=== PATIENT | female | born 1965 | race Caucasian/White ===

== ENCOUNTER 2016-06-24 10:42 | Emergency (ER) | payer MEDICAID | END 2016-06-24 13:40 | disposition home or self-care (01) | DX: S82.831A Other fracture of upper and lower end of right fibula, initial encounter for closed fracture (principal); S93.491A Sprain of other ligament of right ankle, initial encounter; X50.1XXA Overexertion from prolonged static or awkward postures, initial encounter; I10 Essential (primary) hypertension ==

== ENCOUNTER 2016-10-20 19:28 | Outpatient (CLI) | payer MEDICAID | END 2016-10-20 19:29 | disposition critical access hospital (66) | LOC: EMS 19:28 | PROVIDERS: ATTEND Surgery | DX: R10.9 Unspecified abdominal pain (principal) | CPT/HCPCS: A0425; A0429 ==

== ENCOUNTER 2016-10-20 19:42 | Observation (INO) | payer MEDICAID ==
[2016-10-20 20:23] LABS: BASOPHILS # (AUTO) 0.1 10^3/uL (0.0-0.1); BASOPHILS % (AUTO) 0.8 %; EOSINOPHILS # (AUTO) 0.1 10^3/uL (0.0-0.7); EOSINOPHILS % (AUTO) 1.4 %; HCT - HEMATOCRIT 41.3 % (37.0-47.0); HGB - HEMOGLOBIN 14.2 g/dL (12.0-16.0); LYMPHOCYTES # (AUTO) 1.6 10^3/uL (1.5-3.5); LYMPHOCYTES % (AUTO) 16.9 %; MEAN CORPUSCULAR HGB CONC 34.5 g/dL (32.0-36.0); MEAN CORPUSCULAR VOLUME 84.3 fL (81.0-99.0); MEAN PLATELET VOLUME 8.8 fL (7.9-10.8); MONOCYTES # (AUTO) 0.6 10^3/uL (0.0-1.0); MONOCYTES % (AUTO) 6.4 %; NEUTROPHILS # (AUTO) 7.2 10^3/uL (1.5-6.6); NEUTROPHILS % (AUTO) 74.5 %; UNCORRECTED WHITE BLOOD COUNT 9.7 x10^3/uL; WHITE BLOOD COUNT 9.7 x10^3/uL (4.8-10.8)
[2016-10-20 20:42] LABS: ALBUMIN/GLOBULIN RATIO 1.1 (1.0-2.2); BILIRUBIN,TOTAL 0.7 mg/dL (0.2-1.0); BUN - BLOOD UREA NITROGEN 16 mg/dL (6-20); CALCIUM 9.3 mg/dL (8.5-10.3); CARBON DIOXIDE - CO2 33 mmol/L (21-32); CHLORIDE 100 mmol/L (101-111); CREATININE 0.7 mg/dL (0.4-1.0); GFR - MDRD 88 (>89); GLUCOSE 73 mg/dL (70-100); LIPASE 37 U/L (22-51); MAGNESIUM 1.9 mg/dL (1.7-2.8); SODIUM 141 mmol/L (135-145); TOTAL PROTEIN 8.1 g/dL (6.7-8.2)
[2016-10-20] MEDS ORDERED: HYDROmorphone 1 MG/ML SYRINGE IVP STA (20:42)
[2016-10-20] MEDS ORDERED: POTASSIUM CHLOR 10 MEQ/100 ML 100 ML IV ONE ×2 (20:42→20:55)
[2016-10-20] MEDS ORDERED: SODIUM CHLORIDE 0.9% 1,000 ML IV ONE (20:42)
--- NOTE | 2016-10-20 20:44 | ED Physician Documentation ---
PD HPI ABD PAIN - Stated complaint Stated Complaint: ABD PAIN - Chief complaint Chief Complaint: Abd Pain - History obtained from History obtained from: Patient - History of Present Illness Timing - onset: Other (51-year-old woman with chronic hypokalemia, hepatitis C, and methamphetamine abuse presents with sudden onset periumbilical pain that started a few hours ago. She had methamphetamines this morning. Her only abdominal surgery is tubal ligation. She denies any nausea or vomiting with this. She had a small hard bowel movement shortly before the pain began.) Review of Systems Ten Systems: 10 systems reviewed and negative Constitutional: denies: Fever, Chills Cardiac: reports: Reviewed and negative Respiratory: reports: Reviewed and negative GI: reports: Abdominal Pain, Constipation. 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 - Present Medications Home Medications: Ambulatory Orders Medication Instructions Recorded Confirmed Buspirone HCl 10 mg PO DAILY 08/13/12 06/24/16 FLUoxetine [PROzac] 60 mg PO DAILY 08/13/12 06/24/16 buPROPion [Wellbutrin Xl] 150 mg PO DAILY 10/30/13 06/24/16 Spironolactone 25 mg PO DAILY 06/08/15 06/24/16 amLODIPine [Norvasc] 1 tab PO DAILY 06/08/15 06/24/16 - Allergies Allergies/Adverse Reactions: Allergies Allergy/AdvReac Type Severity Reaction Status Date / Time acetaminophen [From Tylenol] AdvReac Severe HEP C Verified 10/20/16 19:48 STATUS/UNABLE TO PROCESS TYLENOL - Social History Does the pt smoke?: No Smoking Status: Never smoker Does the pt drink ETOH?: No Does the pt have substance abuse?: Yes Substance Use and Type: Meth - Family History Family history: reports: Non contributory - Immunizations Immunizations are current?: Yes Immunizations: TDAP >10years/unknown - POLST Patient has POLST: No PD ED PE NORMAL - Vitals Vital signs reviewed: Yes - General General: Alert and oriented X 3, No acute distress - HEENT HEENT: PERRL, EOMI - Neck Neck: Supple, no meningeal sign, No bony TTP - Cardiac Cardiac: RRR, No murmur - Respiratory Respiratory: No respiratory distress, Clear bilaterally - Abdomen Abdomen: Other (Mesh bowel tones, soft with focal tenderness in the right lower quadrant. Positive Rovsing sign.) - Back Back: No CVA TTP, No spinal TTP - Derm Derm: Normal color, Warm and dry - Extremities Extremities: No edema, No calf tenderness / cord - Neuro Neuro: Alert and oriented X 3, Normal speech - Psych Psych: Normal mood, Normal affect Results - Vitals Vitals: Vital Signs - 24 hr 10/20/16 10/20/16 10/20/16 19:45 20:36 21:41 Temperature 36.6 C 36.8 C 36.8 C Heart Rate 78 75 72 Respiratory 18 18 15 Rate Blood Pressure 162/86 H 199/91 H 156/85 H O2 Saturation 100 99 100 Oxygen O2 Source Room air - EKG (time done) 2030 Rate: Rate (enter#) (59) Rhythm: NSR [place]: Normal QRS: LVH Ischemia: Non specific changes Compare to prior EKG: Unchanged from prior EKG (no significant change from ) Computer interpretation: Agree with computer - Labs Labs: Laboratory Tests 10/20/16 10/20/16 10/20/16 20:14 20:14 20:14 WBC 9.7 RBC 4.90 Hgb 14.2 Hct 41.3 MCV 84.3 MCH 29.0 MCHC 34.5 RDW 14.0 Plt Count 277 MPV 8.8 Neut # 7.2 H Lymph # 1.6 Swisher # 0.6 Eos # 0.1 Baso # 0.1 Absolute Nucleated RBC 0.00 Nucleated RBCs 0.0 Sodium 141 Potassium 2.2 L* Chloride 100 L Carbon Dioxide 33 H Anion Gap 8.0 BUN 16 Creatinine 0.7 Estimated GFR (MDRD) 88 L Glucose 73 Calcium 9.3 Magnesium 1.9 Total Bilirubin 0.7 AST 51 H ALT 50 Alkaline Phosphatase 91 Troponin I < 0.04 Total Protein 8.1 Albumin 4.3 Globulin 3.8 Albumin/Globulin Ratio 1.1 Lipase 37 Urine Color Urine Clarity Urine pH Ur Specific [place] Urine Protein Urine Glucose (UA) Urine Ketones Urine Occult Blood Urine Nitrite Urine Bilirubin Urine Urobilinogen Ur Leukocyte Esterase Ur Microscopic Review Urine Culture Comments Ethyl Alcohol < 5.0 10/20/16 21:35 WBC RBC Hgb Hct MCV MCH MCHC RDW Plt Count MPV Neut # Lymph # Swisher # Eos # Baso # Absolute Nucleated RBC Nucleated RBCs Sodium Potassium Chloride Carbon Dioxide Anion Gap BUN Creatinine Estimated GFR (MDRD) Glucose Calcium Magnesium Total Bilirubin AST ALT Alkaline Phosphatase Troponin I Total Protein Albumin Globulin Albumin/Globulin Ratio Lipase Urine Color YELLOW Urine Clarity CLEAR Urine pH 8.0 H Ur Specific [place] 1.010 Urine Protein NEGATIVE Urine Glucose (UA) NEGATIVE Urine Ketones NEGATIVE Urine Occult Blood NEGATIVE Urine Nitrite NEGATIVE Urine Bilirubin NEGATIVE Urine Urobilinogen 0.2 (NORMAL) Ur Leukocyte Esterase NEGATIVE Ur Microscopic Review NOT INDICATED Urine Culture Comments NOT INDICATED Ethyl Alcohol - Rads (name of study) CT A/P Radiology: EMP read contemporaneously (Acute unruptured appendicitis) PD MEDICAL DECISION MAKING - ED course ED course: 51-year-old woman presents with signs and symptoms concerning for appendicitis. We discussed her hypokalemia, she does have chronic hypokalemia and stopped taking her spironolactone and potassium supplementation about 2 weeks ago. Last oral intake was around 8 PM. Potassium is repleted IV. Spoke with Dr. Garcia for admission at 9:47 PM. Between the fact that she ate within the last few hours, has profound hypokalemia and it needs to be corrected further before going to the operating room, she will probably not go to the operating room until the morning. We agreed on Zosyn in the interim. Departure - Departure Disposition: ED Transfer to [facility] Clinical Impression: Hypokalemia, Methamphetamine abuse Appendicitis Qualifiers: Appendicitis type: acute appendicitis Acute appendicitis type: with localized peritonitis Qualified Code(s): K35.3 - Acute appendicitis with localized peritonitis Condition: Stable
[2016-10-20] MEDS ORDERED: HYDROmorphone 1 MG/ML SYRINGE ONE (20:55)
[2016-10-20] MEDS ORDERED: SODIUM CHLORIDE FLUSH 0.9% 10 ML SYRINGE IVP ONE (20:56)
[2016-10-20] MEDS ORDERED: IOPAMIDOL-300 100 ML VIAL IVP ONE (21:14)
--- NOTE | 2016-10-20 21:41 | CT Preliminary Report ---
Exam: CT Abdomen/Pelvis W/ IMPRESSION: Acute unruptured appendicitis. [facility] SITE ID: [id number]
--- NOTE | 2016-10-20 21:44 | CT Report ---
EXAM: CT ABDOMEN AND PELVIS EXAM DATE: 10/20/2016 09:17 PM. CLINICAL HISTORY: Right lower quadrant pain. COMPARISONS: None. TECHNIQUE: Routine helical CT imaging was performed through the abdomen and pelvis. IV contrast: 100 cc Isovue-300. Enteric contrast: No. Reconstructions: Coronal and sagittal. In accordance with CT protocol optimization, one or more of the following dose reduction techniques w ere utilized for this exam: automated exposure control, adjustment of mA and/or KV based on patient s ize, or use of iterative reconstructive technique. FINDINGS: Lung Bases: Unremarkable. Liver: Normal. No masses. Gallbladder/Bile Ducts: Unremarkable. Spleen: Normal. Pancreas: Normal. Adrenal Glands: Small left adrenal adenoma. Otherwise unremarkable. Kidneys: Normal. No masses or hydronephrosis. Peritoneal Cavity/Bowel: Distended fluid-filled retrocecal appendix measuring about 8 mm in diameter, with enhancing wall and hazy infiltration of surrounding fat. No fluid collection or abscess formati on. Unremarkable other bowel loops. No free fluid, free air, or lymphadenopathy. Pelvic Organs: Normal. The bladder and visualized pelvic organs are within normal limits. Vasculature: No aneurysms or other significant abnormality. Bones: No significant abnormality. Other: None. IMPRESSION: Acute unruptured appendicitis. [facility] Referring Provider Line: [phone] SITE ID: [id number]
[2016-10-20 21:45] LABS: BILIRUBIN,URINE NEGATIVE (NEGATIVE); UA CHARGE (STRIP ONLY) YES; UR CULTURE IF IND NOT INDICATED
[2016-10-20] MEDS ORDERED: PIPERACILLIN/TAZOBACTAM 3.375 GM in SODIUM CHLORIDE 0.9% MINIBAG 100 ML IV STA (21:48)
[2016-10-20] MEDS ORDERED: MORPHINE 2 MG/ML CARPUJECT IVP PRN (22:15)
[2016-10-20] MEDS ORDERED: ONDANSETRON 4 MG/2 ML VIAL IVP PRN (22:16)
[2016-10-20 22:59] LABS: POTASSIUM 2.2 mmol/L (3.5-5.0)
[2016-10-21] MEDS ORDERED: SODIUM CHLORIDE FLUSH 0.9% 10 ML SYRINGE IVP ONE ×2 (00:06→16:34)
[2016-10-21] MEDS: LACTATED RINGERS 1,000 ML IV SCH ×2 (00:16→10:36)
[2016-10-21] MEDS: POTASSIUM CHLOR 10 MEQ/100 ML 100 ML IV SCH ×4 (00:36→07:22)
[2016-10-21] MEDS ORDERED: POTASSIUM CHLOR 20 MEQ/100 ML 100 ML IV ONE ×2 (04:00→06:16)
[2016-10-21] MEDS: PIPERACILLIN/TAZOBACTAM 3.375 GM in SODIUM CHLORIDE 0.9% MINIBAG 100 ML IV SCH ×2 (04:02→08:45)
[2016-10-21 05:48] LABS: CALCIUM 8.4 mg/dL (8.5-10.3); CREATININE 0.6 mg/dL (0.4-1.0)
[2016-10-21 05:49] LABS: POTASSIUM 2.5 mmol/L (3.5-5.0)
[2016-10-21] MEDS ORDERED: POTASSIUM CHLORIDE 20 MEQ/15 ML UDC PO STA (06:16)
[2016-10-21] MEDS ORDERED: busPIRone 5 MG TABLET PO SCH (09:00)
--- NOTE | 2016-10-21 09:51 | HISTORY & PHYSICAL EXAMINATION ---
DATE OF ADMISSION: 10/20/2016 ADMITTING PHYSICIAN: Dr. Garcia. REASON FOR ADMISSION: Abdominal pain. HISTORY OF PRESENT ILLNESS: This is a 51-year-old female who presented to the emergency department with a 1-day history of right lower quadrant abdominal pain and nausea. Upon evaluation in the emergency department, lab values were obtained, which demonstrated a white blood cell count of 9.7. She underwent a CT scan of the abdomen, which demonstrated a dilated appendix located in the retrocecal location with surrounding infiltration suggestive of acute appendicitis. PAST MEDICAL HISTORY: Significant for hepatitis C and psychiatric disorders and IV drug abuse. She states that she has not used IV drugs for years; however, she recently used methamphetamines. PAST SURGICAL HISTORY: Tubal ligation. HOME MEDICATIONS: Buspirone 10 mg p.o. daily. ALLERGIES TO MEDICATIONS: ACETAMINOPHEN. SOCIAL HISTORY: The patient is a current drug user, but she is in rehab and trying to quit. PHYSICAL EXAMINATION VITAL SIGNS: Temperature is 36.8, blood pressure 156/85, heart rate of 72, respiratory rate 15, O2 saturation is 100% on room air. GENERAL: She is awake, alert, oriented x3, in no acute distress. She is obese. CARDIOVASCULAR: Regular rate and rhythm. CHEST: Clear to auscultation bilaterally with no rhonchi or wheezing. ABDOMEN: Soft, nondistended, tender to palpation in the right lower quadrant with no guarding and no rigidity. EXTREMITIES: Nonedematous. LABORATORY VALUES: White blood cell count 9.7, hemoglobin 14.2, hematocrit 41.3 , platelets 277. Sodium 141, potassium 2.2, chloride 100, bicarbonate 33, BUN 16 , creatinine 0.7. ASSESSMENT: This is a 51-year-old female with abdominal pain and hypokalemia. PLAN: The patient will be admitted to the surgical service and her potassium will be repleted in preparation for operative intervention. She will require IV administration of potassium to correct her hypokalemia. She will be reassessed in the morning to confirm the diagnosis of acute appendicitis and if this is confirmed, she will be taken to the operating room for a laparoscopic appendectomy. The patient will remain n.p.o. overnight in preparation for the OR. JOB #: [id number] EXT JOB #:[id number] [facility]
[2016-10-21 10:37] LABS: HCG UR QUAL NEGATIVE
[2016-10-21] MEDS ORDERED: LACTATED RINGERS 1,000 ML IV ONE ×2 (11:42)
[2016-10-21] MEDS ORDERED: BUPIVACAINE 0.5%-EPI 1:200000 PF 30 ML VIAL SUBQ ONE ×2 (12:08→12:57)
--- NOTE | 2016-10-21 13:12 | Discharge Plan ---
Discharge Plan Disposition: 01 Home, Self Care Condition: Stable Prescriptions: oxyCODONE/ACET 5/325 [Percocet 5 mg/325 mg] 1 each PO ONCE #15 tablet Diet: Regular Activity Restrictions: Activity as Tolerated Shower Restrictions: Yes (no tub bathing 1 week) Driving Restrictions: Yes (not while on narcotics) Weight Bearing: Full Weight No Smoking: If you smoke, Please STOP! Call for help. Follow-up with: ERLINDA BARRERA MD [Provider Admit Priv/Credential] - 4 Weeks
--- NOTE | 2016-10-21 13:13 | PROVIDER PROGRESS NOTE ---
Subjective - General Admit Date: 10/20/16 Procedure Date: 10/21/16 Post Op Days: 0 Procedure Performed: laparoscopic appendectomy Objective - Patient Data Reviewed Vital Signs: Yes Vital Signs: Vital Signs x48h Temp Pulse Resp BP Pulse Ox 10/21/16 13:05 97 10/21/16 13:00 99 10/21/16 12:55 100 10/21/16 11:08 130/39 L 10/21/16 09:00 36.5 C 58 L 18 168/93 H 97 Weight: Weight 10/19/16 10/20/16 10/21/16 23:59 23:59 23:59 Weight (kg) 89.5 kg Intake & Output: Intake and Output Totals x24h 10/19/16 10/20/16 10/21/16 23:59 23:59 23:59 Intake Total 100 656 Output Total 600 Balance 100 56 - Lab Results Lab Results: 10/20/16 20:14 10/21/16 05:30 Other Lab Results: Lab Results x24hrs 10/21/16 10/21/16 Range/Units 09:00 05:30 Sodium 139 (135-145) mmol/L Potassium 2.5 L* (3.5-5.0) mmol/L Chloride 103 (101-111) mmol/L Carbon Dioxide 28 (21-32) mmol/L Anion Gap 8.0 (6-13) BUN 10 (6-20) mg/dL Creatinine 0.6 (0.4-1.0) mg/dL Estimated GFR (MDRD) 105 (>89) Glucose 118 H (70-100) mg/dL Calcium 8.4 L (8.5-10.3) mg/dL Ur Specific [place] <=1.005 (1.002-1.030) Urine HCG, Qual NEGATIVE - Current Medications Current Medications: Current Medications Generic Name Dose Route Start Last Admin Trade Name Freq PRN Reason Stop Dose Admin Buspirone HCl 10 mg 10/21/16 09:00 10/21/16 08:45 Buspar PO 10 mg DAILY LINO Administration Lactated Ringer's 1,000 mls @ 125 mls/hr 10/20/16 23:00 10/21/16 10:36 Lr IV 125 mls/hr .Q8H LINO Administration Piperacillin Sod/Tazobactam 100 mls @ 200 mls/hr 10/21/16 04:00 10/21/16 08:45 Sod 3.375 gm/ Sodium Chloride IV 10/22/16 03:59 200 mls/hr Q6H LINO Administration - Physical Exam Wound/Incisions: positive: No drainage General Appearance: positive: No acute distress Respiratory: positive: No respiratory distress Cardiovascular: positive: Regular rate & rhythm Abdomen: positive: Non-tender Extremities: positive: No pedal edema Impression/Plan - Problem List Problem List: final diagnosis: acute appendicitis patient provided with discharge instructions and a prescription for percocet. She will follow up in my office in 4 weeks.
[2016-10-21] MEDS: HYDROmorphone 1 MG/ML SYRINGE ONE ×3 (13:27→13:52)
[2016-10-21 16:35] VITALS: BP 145/76
[2016-10-21] MEDS ORDERED: DEXAMETHASONE 4 MG/ML VIAL IVP ONE (16:59)
[2016-10-21] MEDS ORDERED: PROPOFOL 200 MG/20 ML VIAL IVP ONE (16:59)
[2016-10-21] MEDS ORDERED: MIDAZOLAM 2 MG/2 ML VIAL IVP ONE (16:59)
[2016-10-21] MEDS ORDERED: ceFAZolin 1 GM VIAL IV ONE (16:59)
[2016-10-21] MEDS ORDERED: LIDOCAINE-MPF 2% 5 ML VIAL IM ONE (16:59)
[2016-10-21] MEDS ORDERED: fentaNYL 100 MCG/2 ML VIAL IVP ONE (16:59)
[2016-10-21] MEDS ORDERED: SUCCINYLCHOLINE 200 MG/10 ML VIAL IVP ONE (16:59)
[2016-10-21] MEDS ORDERED: ONDANSETRON 4 MG/2 ML VIAL IVP ONE (16:59)
[2016-10-21] MEDS ORDERED: ROCURONIUM 50 MG/5 ML VIAL IVP ONE (16:59)
--- NOTE | 2016-10-21 20:06 | OPERATIVE REPORT ---
DATE OF SURGERY: 10/21/2016 00:00:00 PREOPERATIVE DIAGNOSIS: Acute appendicitis. POSTOPERATIVE DIAGNOSIS: Acute appendicitis. PROCEDURE: Laparoscopic appendectomy. SURGEON: Josefina Garcia MD INDICATION FOR PROCEDURE: Acute appendicitis. FINDINGS: After obtaining informed consent from the patient, she was brought into the operating room and positioned on the operating table in the supine position, taking note of pressure points. She was intubated by Anesthesia. She was administered 3 grams of Ancef. She was prepped and draped in the usual sterile fashion, and a time-out was taken according to protocol. An infraumbilical 1 cm incision was created and the umbilical stalk identified. A Veress needle was inserted at this location and the abdominal cavity insufflated. Using a 5 mm Optiview trocar, the abdominal cavity was entered at the left lower abdominal wall. The Veress needle was then replaced with a 12 mm port. A 5 mm port was placed in the lower midline. The patient was then positioned with the right side up in Trendelenburg, and the cecum was rotated medially, exposing the appendix. The appendix was noted to be inflamed but was not ruptured. It was grasped and elevated, and the mesoappendix was divided using the LigaSure device. The base of the appendix was then amputated using an Endo-PARAG stapling device with a blue load. There was noted to be some pulsatile bleeding at the staple line upon removal of the appendix. Two clips were placed on the staple line, and the bleeding resolved. The area was irrigated profusely , and hemostasis was noted to be achieved. A piece of Surgicel was subsequently placed on the staple line to ensure hemostasis. The appendix was removed through the umbilical port. The umbilical port site was then closed with a Esteban-Juan Manuel device using a 0 Vicryl suture. The abdominal cavity was allowed to desufflate. All ports were removed. The skin closed with 4-0 Monocryl. Dermabond was applied. The patient was extubated and taken to the recovery room in stable condition. ESTIMATED BLOOD LOSS: 15 mL. COMPLICATIONS: None. SPECIMENS: Appendix. JOB #: [id number] [facility]T [facility][id number] [facility]
== END 2016-10-21 17:00 | disposition home or self-care (01) ==
LOC: EDUNIT# → ED 19:42 → OBS 22:10
PROVIDERS: ADMIT Surgery; ATTEND Surgery
PROC: 0DTJ4ZZ Resection of Appendix, Percutaneous Endoscopic Approach (ICD-10-PCS; principal; 2016-10-21 07:30)
DX: K35.80 Unspecified acute appendicitis (principal); C7A.020 Malignant carcinoid tumor of the appendix; E87.6 Hypokalemia; I10 Essential (primary) hypertension; F41.0 Panic disorder [episodic paroxysmal anxiety]; F43.10 Post-traumatic stress disorder, unspecified; F90.9 Attention-deficit hyperactivity disorder, unspecified type; Z86.19 Personal history of other infectious and parasitic diseases; Z87.898 Personal history of other specified conditions; E66.9 Obesity, unspecified; Z68.37 Body mass index [BMI] 37.0-37.9, adult
CPT/HCPCS: 36415; 74177; 80048; 80053; 80320; 81001; 81003; 81025; 83690; 83735; 84484; 84703; 85025; 87086; 88304; 88341; 88342; 88360; 93005; 96361; 96365; 96366; 96367; 96375; 99284; 99285

== ENCOUNTER 2017-07-05 22:39 | Emergency (ER) | payer MEDICAID ==
[2017-07-05] MEDS ORDERED: KETOROLAC 60 MG/2 ML VIAL IM STA (23:01)
[2017-07-05] MEDS ORDERED: DEXAMETHASONE 10 MG/ML VIAL PO STA (23:01)
[2017-07-05] MEDS ORDERED: IPRATROPIUM/ALBUTEROL 3 ML NEB INH STA (23:01)
--- NOTE | 2017-07-05 23:03 | ED Physician Documentation ---
PD HPI URI - Stated complaint Stated Complaint: SORE THROAT/NO VOICE - Chief complaint Chief Complaint: Heent - History obtained from History obtained from: Patient, Family - History of Present Illness Timing - onset: Yesterday Timing duration: Hours (24) Timing details: Gradual onset Pain level max: 8 Pain level now: 8 Associated symptoms: Ear pain, Nasal congestion, Rhinorrhea, Sore throat, Dry cough, Dyspnea (wheezing). No: Fever, Chills Contributing factors: Sick contact, COPD / asthma Improves by: Rest Worsened by: Activity, Breathing Recently seen: Not recently seen Review of Systems Ten Systems: 10 systems reviewed and negative Constitutional: denies: Fever, Chills Ears: reports: Ear pain Nose: reports: Rhinorrhea / runny nose, Congestion Throat: reports: Sore throat Cardiac: denies: Chest pain / pressure, Palpitations Respiratory: reports: Cough, Wheezing GI: denies: Abdominal Pain, Nausea, Vomiting, Diarrhea Skin: denies: Rash Musculoskeletal: denies: Neck pain, Back pain Neurologic: denies: Headache PD PAST MEDICAL HISTORY - Past Medical History Past Medical History: Yes Cardiovascular: Hypertension Neuro: None Endocrine/Autoimmune: None Psych: Depression, Anxiety, Panic attacks, ADD/ADHD, Post traumatic stress disorder Musculoskeletal: Osteoarthritis, Chronic back pain - Past Surgical History 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 - Present Medications Home Medications: Ambulatory Orders Medication Instructions Recorded Confirmed busPIRone [Buspar] 10 mg PO DAILY tablet 10/21/16 oxyCODONE/ACET 5/325 [Percocet 5 1 each PO ONCE #15 tablet 10/21/16 mg/325 mg] Albuterol Sulf [Ventolin Hfa 1 - 2 puffs INH Q4HR PRN #1 inhaler 07/05/17 Inhaler] Azithromycin [Zithromax] 0 mg PO DAILY #6 tablet 07/05/17 Meloxicam [Mobic] 7.5 mg PO BID PRN #20 tablet 07/05/17 - Allergies Allergies/Adverse Reactions: Allergies Allergy/AdvReac Type Severity Reaction Status Date / Time acetaminophen [From Tylenol] AdvReac Severe HEP C Verified 07/05/17 22:49 STATUS/UNABLE TO PROCESS TYLENOL - Social History Does the pt smoke?: No Smoking Status: Never smoker Does the pt drink ETOH?: No Does the pt have substance abuse?: Yes - Immunizations Immunizations are current?: Yes Immunizations: TDAP >10years/unknown - POLST Patient has POLST: No PD ED PE NORMAL - Vitals Vital signs reviewed: Yes - General General: Alert and oriented X 3, No acute distress - HEENT HEENT: Moist mucous membranes, Other (Bilateral tympanic membranes are erythematous, dull, bulging with loss of landmarks and fluid present. Posterior oropharynx is erythematous, bilateral tonsillar swelling. Uvula midline. Normal phonation. No trismus. No exudates.) - Neck Neck: Supple, no meningeal sign, Other (Shotty anterior lymphadenopathy) - Cardiac Cardiac: RRR - Respiratory Respiratory: No respiratory distress, Other (Very diminished breath sounds bilaterally with expiratory wheeze) - Abdomen Abdomen: Soft, Non tender, Non distended - Back Back: No CVA TTP - Derm Derm: Warm and dry, No rash - Extremities Extremities: No edema, No calf tenderness / cord - Neuro Neuro: Alert and oriented X 3 Results - Vitals Vitals: Vital Signs - 24 hr 07/05/17 07/05/17 07/05/17 22:46 23:20 23:49 Temperature 37.1 C 36.0 C L Heart Rate 90 81 88 Respiratory 18 18 18 Rate Blood Pressure 177/100 H 145/86 H O2 Saturation 100 99 Oxygen O2 Source Room air - Labs Labs: Laboratory Tests 07/05/17 22:50 Group A Strep Rapid Negative PD MEDICAL DECISION MAKING - ED course Complexity details: re-evaluated patient, considered differential, d/w patient, d/w family ED course: Patient is a 51-year-old female who presents to the emergency department with what appears to be a viral upper respiratory infection complicated by bilateral acute otitis media. Will place on antibiotics for this. She feels better after nebulizer treatment and steroids in the emergency department. Also given Toradol. Will place on pain medication, antibiotics and inhalers for home and have her follow-up with her doctor. She is well-appearing, nontoxic. No evidence of peritonsillar abscess or retropharyngeal abscess. No evidence of pneumonia clinically. No hypoxia. No respiratory distress. Patient counseled regarding signs and symptoms for which I believe and urgent re-evaluation would be necessary. Patient with good understanding of and agreement to plan and is comfortable going home at this time This document was made in part using voice recognition software. While efforts are made to proofread this document, sound alike and grammatical errors may occur. Departure - Departure Disposition: 01 Home, Self Care Clinical Impression: Viral URI Otitis media Qualifiers: Otitis media type: suppurative Chronicity: acute Laterality: bilateral Recurrence: not specified as recurrent Spontaneous tympanic membrane rupture: without spontaneous rupture Qualified Code(s): H66.003 - Acute suppurative otitis media without spontaneous rupture of ear drum, bilateral Condition: Good Instructions: ED Otitis Media Acute Adult, ED Viral Syndrome Follow-Up: Nyla Patel ARNP [Primary Care Provider] - Within 1 week Prescriptions: Albuterol Sulf [Ventolin Hfa Inhaler] 1 - 2 puffs INH Q4HR PRN #1 inhaler PRN Reason: Shortness Of Air/Wheezing Azithromycin [Zithromax] 0 mg PO DAILY #6 tablet Meloxicam [Mobic] 7.5 mg PO BID PRN #20 tablet PRN Reason: Pain Comments: Return if you worsen. Drink plenty of fluids and rest. Take all antibiotics until gone.
[2017-07-05] MEDS ORDERED: CHERRY SYRUP 10 ML UDC PO ONE (23:25)
[2017-07-05 23:50] VITALS: BP 145/86
== END 2017-07-06 00:07 | disposition home or self-care (01) ==
LOC: ED 22:39
DX: J06.9 Acute upper respiratory infection, unspecified (principal); H66.003 Acute suppurative otitis media without spontaneous rupture of ear drum, bilateral; I10 Essential (primary) hypertension
CPT/HCPCS: 87070; 87430; 94640; 94664; 96372; 99283; A9270

== ENCOUNTER 2017-08-14 18:39 | Emergency (ER) | payer MEDICAID ==
[2017-08-14 18:58] VITALS: BP 138/90
--- NOTE | 2017-08-14 19:12 | ED Physician Documentation ---
PD HPI MHE - Stated complaint Stated Complaint: MHE - Chief complaint Chief Complaint: MHE - History obtained from History obtained from: Patient - History of Present Illness Primary symptom: Depression, Anxiety, Out of meds. No: Suicidal ideation, Homicidal ideation, Psychosis Timing - onset: How many days ago (she has started feeling anxious and more depressed the past few days, feeling she needs to get back on meds sooner than her appts, which are not for a week or more.) Contributing factors: Out of meds (ran out 2 weeks ago and does not have appt with [facility] for another week. She says they were going to give her Rx but then did not because she had not had a recent appt. [facility] did couple of her Rxs as well, and she is getting an appt with them set up.) Similar symptoms before: Diagnosis (depression and anxiety) Review of Systems Constitutional: denies: Fever Nose: denies: Rhinorrhea / runny nose, Congestion Throat: denies: Sore throat Respiratory: denies: Cough GI: denies: Nausea, Vomiting, Diarrhea Skin: denies: Rash, Lesions Neurologic: denies: Generalized weakness, Near syncope, Altered mental status, Headache Psychiatric: reports: Depressed, Anxiety. 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 - Present Medications Home Medications: Ambulatory Orders Medication Instructions Recorded Confirmed Buspirone HCl 30 mg PO DAILY #30 tablet 08/14/17 Spironolactone 25 mg PO DAILY #30 tablet 08/14/17 Venlafaxine [Effexor] 75 mg PO DAILY #30 tablet 08/14/17 amLODIPine [Norvasc] 5 mg PO DAILY #30 tablet 08/14/17 busPIRone [Buspar] 30 mg DAILY 08/14/17 08/14/17 - Allergies Allergies/Adverse Reactions: Allergies Allergy/AdvReac Type Severity Reaction Status Date / Time acetaminophen [From Tylenol] AdvReac Severe HEP C Verified 07/05/17 22:49 STATUS/UNABLE TO PROCESS TYLENOL - Social History Does the pt smoke?: No Smoking Status: Never smoker Does the pt drink ETOH?: No Does the pt have substance abuse?: Yes - Immunizations Immunizations are current?: Yes Immunizations: TDAP >10years/unknown - POLST Patient has POLST: No PD ED PE NORMAL - General General: Alert and oriented X 3, No acute distress, Well developed/nourished - Derm Derm: Normal color, Warm and dry - Extremities Extremities: No tenderness to palpate, Normal ROM s pain - Neuro Neuro: Alert and oriented X 3, No motor deficit, Normal speech - Psych Psych: Normal mood, Normal affect Results - Vitals Vitals: Vital Signs - 24 hr 08/14/17 18:50 Temperature 36.5 C Heart Rate 85 Respiratory 15 Rate Blood Pressure 138/90 H O2 Saturation 98 Oxygen O2 Source Room air PD MEDICAL DECISION MAKING - ED course Complexity details: considered differential, d/w patient - Sepsis Event Vital Signs: Vital Signs - 24 hr 08/14/17 18:50 Temperature 36.5 C Heart Rate 85 Respiratory 15 Rate Blood Pressure 138/90 H O2 Saturation 98 Oxygen O2 Source Room air Departure - Departure Disposition: 01 Home, Self Care Clinical Impression: Anxiety Depression Qualifiers: Depression Type: major depressive disorder Major depression recurrence: unspecified whether recurrent Active/Remission status: remission status unspecified Qualified Code(s): F32.9 - Major depressive disorder, single episode , unspecified Condition: Stable Record reviewed to determine appropriate education?: Yes Instructions: ED Depression Follow-Up: Nyla Patel ARNP [Primary Care Provider] - [facility] [Provider Group] Prescriptions: amLODIPine [Norvasc] 5 mg PO DAILY #30 tablet Buspirone HCl 30 mg PO DAILY #30 tablet Spironolactone 25 mg PO DAILY #30 tablet Venlafaxine [Effexor] 75 mg PO DAILY #30 tablet Comments: Resume usual medications. Follow-up with your primary care at the [facility] and also [facility]. Discharge Date/Time: 08/14/17 19:57
== END 2017-08-14 19:57 | disposition home or self-care (01) ==
LOC: ED 18:39
DX: F41.9 Anxiety disorder, unspecified (principal); F32.9 Major depressive disorder, single episode, unspecified; I10 Essential (primary) hypertension
CPT/HCPCS: 99283

== ENCOUNTER 2017-08-21 17:28 | Emergency (ER) | payer MEDICAID ==
[2017-08-21 17:48] VITALS: BP 165/106
--- NOTE | 2017-08-21 17:56 | ED Physician Documentation ---
History of Present Illness - Stated complaint Stated Complaint: MED REFILL - Chief complaint Chief Complaint: General - History obtained from History obtained from: Patient - History of Present Illness Timing: How many days ago (2) Pain level max: 0 Pain level now: 0 Improved by: nothing Worsened by: nothing - Additonal information Additional information: lost her medications. Doesn't have a PCP appointment to refill them. Her medications are refilled here 1 week ago, she then went to the [facility] and now cannot find her medications. 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 - Present Medications Home Medications: Ambulatory Orders Medication Instructions Recorded Confirmed Buspirone HCl 30 mg PO DAILY #30 tablet 08/14/17 busPIRone [Buspar] 30 mg DAILY 08/14/17 08/14/17 Spironolactone 25 mg PO DAILY #30 tablet 08/21/17 Venlafaxine [Effexor] 75 mg PO DAILY #60 tablet 08/21/17 amLODIPine [Norvasc] 5 mg PO DAILY #30 tablet 08/21/17 - Allergies Allergies/Adverse Reactions: Allergies Allergy/AdvReac Type Severity Reaction Status Date / Time acetaminophen [From Tylenol] AdvReac Severe HEP C Verified 07/05/17 22:49 STATUS/UNABLE TO PROCESS TYLENOL - Social History Does the pt smoke?: No Smoking Status: Never smoker Does the pt drink ETOH?: No Does the pt have substance abuse?: Yes - Immunizations Immunizations are current?: Yes Immunizations: TDAP >10years/unknown - POLST Patient has POLST: No PD ED PE NORMAL - Vitals Vital signs reviewed: Yes - General General: Alert and oriented X 3, No acute distress - HEENT HEENT: Moist mucous membranes - Neck Neck: Supple, no meningeal sign - Cardiac Cardiac: RRR - Respiratory Respiratory: No respiratory distress, Clear bilaterally - Abdomen Abdomen: Soft, Non tender - Derm Derm: Warm and dry - Neuro Neuro: Alert and oriented X 3 Results - Vitals Vitals: Vital Signs - 24 hr 08/21/17 17:32 Temperature 36.6 C Heart Rate 78 Respiratory 16 Rate Blood Pressure 165/106 H O2 Saturation 97 Oxygen O2 Source Room air PD MEDICAL DECISION MAKING - ED course Complexity details: considered differential, d/w patient ED course: Will refill her medications today and make an appointment with her PCP as soon as possible. She will call the office tomorrow for an appointment. No emergency medical condition at this time. This document was made in part using voice recognition software. While efforts are made to proofread this document, sound alike and grammatical errors may occur. - Sepsis Event Vital Signs: Vital Signs - 24 hr 08/21/17 17:32 Temperature 36.6 C Heart Rate 78 Respiratory 16 Rate Blood Pressure 165/106 H O2 Saturation 97 Oxygen O2 Source Room air Departure - Departure Disposition: 01 Home, Self Care Clinical Impression: Medication refill Condition: Good Follow-Up: Nyla Patel, RESIDENCE COUNSELOR [Primary Care Provider] - Within 1 week Prescriptions: amLODIPine [Norvasc] 5 mg PO DAILY #30 tablet Spironolactone 25 mg PO DAILY #30 tablet Venlafaxine [Effexor] 75 mg PO DAILY #60 tablet Comments: You will need to obtain further medications from your doctor. Call tomorrow to make an appointment. Discharge Date/Time: 08/21/17 18:21
== END 2017-08-21 18:21 | disposition home or self-care (01) ==
LOC: ED 17:28
DX: Z76.0 Encounter for issue of repeat prescription (principal); I10 Essential (primary) hypertension; M19.90 Unspecified osteoarthritis, unspecified site
CPT/HCPCS: 99283

== ENCOUNTER 2017-09-04 09:42 | Outpatient (CLI) | payer MEDICAID ==
[2017-09-04 12:48] LABS: ALBUMIN 3.4 g/dL (3.2-5.5); ALBUMIN/GLOBULIN RATIO 0.8 (1.0-2.2); ALKALINE PHOSPHATASE 126 IU/L (42-121); ALT ALANINE AMINOTRANSFERASE 35 IU/L (10-60); AST ASPARTATE AMINOTRANSFERASE 44 IU/L (10-42); BILIRUBIN,TOTAL 0.9 mg/dL (0.2-1.0); BUN - BLOOD UREA NITROGEN 11 mg/dL (6-20); CALCIUM 8.7 mg/dL (8.5-10.3); CARBON DIOXIDE - CO2 28 mmol/L (21-32); CHLORIDE 104 mmol/L (101-111); CHOL/HDL RATIO 4.5 (<4.4); CHOLESTEROL 226 mg/dL; CREATININE 0.6 mg/dL (0.4-1.0); GFR - MDRD 105 (>89); GLUCOSE 111 mg/dL (70-100); HDL CHOLESTEROL 50 mg/dL; LDL CHOLESTEROL,CALCULATED 145 mg/dL; LDL/HDL RATIO 2.9 (<4.4); SODIUM 139 mmol/L (135-145); TOTAL PROTEIN 7.7 g/dL (6.7-8.2); VLDL CHOLESTEROL 31 mg/dL
[2017-09-04 12:51] LABS: BASOPHILS # (AUTO) 0.1 10^3/uL (0.0-0.1); BASOPHILS % (AUTO) 1.4 %; EOSINOPHILS # (AUTO) 0.5 10^3/uL (0.0-0.7); HGB - HEMOGLOBIN 13.6 g/dL (12.0-16.0); LYMPHOCYTES # (AUTO) 1.5 10^3/uL (1.5-3.5); MEAN CORPUSCULAR HEMOGLOBIN 28.8 pg (27.0-31.0); MEAN CORPUSCULAR HGB CONC 33.6 g/dL (32.0-36.0); MEAN CORPUSCULAR VOLUME 85.7 fL (81.0-99.0); MEAN PLATELET VOLUME 9.3 fL (7.9-10.8); MONOCYTES # (AUTO) 0.3 10^3/uL (0.0-1.0); MONOCYTES % (AUTO) 7.5 %; NEUTROPHILS # (AUTO) 2.2 10^3/uL (1.5-6.6); NEUTROPHILS % (AUTO) 48.1 %; PLT - PLATELET COUNT 350 10^3/uL (130-450); RED BLOOD COUNT 4.73 10^6/uL (4.20-5.40); RED CELL DISTRIBUTION WIDTH 14.4 % (12.0-15.0); WHITE BLOOD COUNT 4.6 x10^3/uL (4.8-10.8)
[2017-09-05 11:12] LABS: HEPATITIS C ANTIBODY REACTIVE (NON-REACTIVE)
[2017-09-08 20:11] LABS: HCV RNA QNT 6.62 Log IU/mL (NOT DETECTED); HCV RNA QUANT RT PCR 4160000 IU/mL (NOT DETECTED)
== END 2017-09-04 09:43 | disposition home or self-care (01) ==
LOC: LAB.N 09:42
PROVIDERS: ATTEND Nurse Practitioner Gerontology
DX: E87.6 Hypokalemia (principal); Z13.9 Encounter for screening, unspecified; I10 Essential (primary) hypertension; B19.20 Unspecified viral hepatitis C without hepatic coma
CPT/HCPCS: 36415; 80053; 80061; 83721; 84443; 85025; 86803

== ENCOUNTER 2018-05-14 16:49 | Emergency (ER) | payer MEDICAID ==
--- NOTE | 2018-05-14 18:16 | ED Physician Documentation ---
PD HPI LOWER EXT INJURY - Stated complaint Stated Complaint: RT LEG PAIN/SWELLING - Chief complaint Chief Complaint: Ext Problem - History obtained from History obtained from: Patient - History of Present Illness PD HPI LOW EXT INJURY LOCATION: Right, Lower leg, Ankle Type of injury: Fall, Twist Timing - onset: How many weeks ago (1) Timing - duration: Weeks (1) Timing - details: Abrupt onset (she broke her ankle and has splint on it, which was very uncomfortable and so she has it off. [place] she was having rub spots. Just using doug wrap.) Associated symptoms: Swelling. No: Weakness, Numbness Recently seen: Emergency Dept (a week ago in [place] - with stirrup splint applied and crutches. 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 - Present Medications Home Medications: Ambulatory Orders Medication Instructions Recorded Confirmed Buspirone HCl 30 mg PO DAILY #30 tablet 08/14/17 busPIRone [Buspar] 30 mg DAILY 08/14/17 08/14/17 Spironolactone 25 mg PO DAILY #30 tablet 08/21/17 Venlafaxine [Effexor] 75 mg PO DAILY #60 tablet 08/21/17 amLODIPine [Norvasc] 5 mg PO DAILY #30 tablet 08/21/17 Naproxen 375 mg PO BID #20 tablet 05/14/18 Oxycodone HCl 5 mg PO Q6H PRN #15 tablet 05/14/18 - Allergies Allergies/Adverse Reactions: Allergies Allergy/AdvReac Type Severity Reaction Status Date / Time acetaminophen [From Tylenol] AdvReac Severe HEP C Verified 05/14/18 17:13 STATUS/UNABLE TO PROCESS TYLENOL - Social History Does the pt smoke?: No Smoking Status: Never smoker Does the pt drink ETOH?: No Does the pt have substance abuse?: Yes - Immunizations Immunizations are current?: Yes Immunizations: TDAP >10years/unknown - POLST Patient has POLST: No PD ED PE NORMAL - Vitals Vital signs reviewed: Yes - General General: Alert and oriented X 3, No acute distress, Well developed/nourished - Back Back: No spinal TTP - Derm Derm: Normal color, Warm and dry - Extremities Extremities: Other (right ankle with swelling and tenderness distal fibular area. No gross deformity. Medially not tender. normal color and cap refill distally. ) - Neuro Neuro: Alert and oriented X 3, No motor deficit, No sensory deficit, Normal speech Results - Vitals Vitals: Oxygen O2 Source Room air - Rads (name of study) right ankle Radiology: Prelim report reviewed, EMP read contemporaneously (nondisplaced distal fibular fracture. ), See rad report PD MEDICAL DECISION MAKING - ED course Complexity details: considered differential (will give cast boot since she was not liking prior stirrup fiberglass splint. It should be initially healing and type of fracture to do okay with boot orthosis. Will be more comfortable. ), d/w patient Departure - Departure Disposition: 01 Home, Self Care Clinical Impression: Fracture of distal end of fibula Qualifiers: Encounter type: subsequent encounter Fracture type: closed Fracture morphology: other fracture Laterality: right Fracture healing: with routine healing Qualified Code(s): S82.831D - Other fracture of upper and lower end of right fibula, subsequent encounter for closed fracture with routine healing Condition: Stable Record reviewed to determine appropriate education?: Yes Follow-Up: [facility] [Provider Group] Prescriptions: Naproxen 375 mg PO BID #20 tablet Oxycodone HCl 5 mg PO Q6H PRN #15 tablet PRN Reason: Pain Comments: Use the Velcro walking boot to support the fibula/ankle over the next 3 weeks. Follow-up with orthopedics in about a week for recheck. Use the crutches still for partial weightbearing for another week and then you can start weightbearing again though it may be good to get orthopedic approval. Naproxen twice daily for the next 7-10 days. Add Tylenol or oxycodone if needed for pains. Again follow-up with orthopedics in about a week, call tomorrow for an appointment. Discharge Date/Time: 05/14/18 19:57
[2018-05-14] MEDS ORDERED: oxyCODONE 5 MG TABLET PO STA (19:36)
--- NOTE | 2018-05-14 19:49 | XRAY Report ---
Reason: fall, R ankle pain has distal tib fracture 05/06 Procedure Date: 05/14/2018 Accession Number: [id number] / [id number] Procedure: XR - Ankle 3 View RT CPT Code: FULL RESULT: EXAM: RIGHT ANKLE RADIOGRAPHY EXAM DATE: 05/14/2018 07:31 PM. CLINICAL HISTORY: Fall, R ankle pain has distal tib fracture 05/06. COMPARISON: ANKLE 3 VIEW RT 06/24/2016 10:59 AM. TECHNIQUE: 3 views. FINDINGS: Acute oblique right distal fibula fracture, Nunez B, with mild posterior displacement. Small chronic appearing lateral malleolus avulsion fractures again noted. Small medial malleus bone spur. No subluxation. Marked diffuse ankle soft tissue swelling. Diffuse lower leg soft tissue swelling. IMPRESSION: Acute oblique right distal fibula fracture, Nunez B, with mild posterior displacement. Marked diffuse ankle soft tissue swelling. Diffuse lower leg soft tissue swelling. See above. RADIA
[2018-05-14 19:57] VITALS: BP 129/61
== END 2018-05-14 19:57 | disposition home or self-care (01) ==
LOC: ED 16:49
DX: S82.831D Other fracture of upper and lower end of right fibula, subsequent encounter for closed fracture with routine healing (principal); W19.XXXD Unspecified fall, subsequent encounter; I10 Essential (primary) hypertension
CPT/HCPCS: 73610; 99283; A9270

== ENCOUNTER 2018-06-08 15:06 | Emergency (ER) | payer MEDICAID ==
[2018-06-08 15:18] VITALS: BP 151/95
[2018-06-08] MEDS ORDERED: TETANUS/DIPHTHERIA/PERTUSSIS 0.5 ML SYRINGE IM ONE (15:34)
--- NOTE | 2018-06-08 15:44 | ED Physician Documentation ---
History of Present Illness - Stated complaint Stated Complaint: CAT BITE/SCRATCHES - Chief complaint Chief Complaint: General - History obtained from History obtained from: Patient - History of Present Illness Timing: Today, How many hours ago (2) Pain level max: 3 Pain level now: 2 - Additonal information Additional information: 52-year-old female presents to the emergency department after suffering cat scratches and cat bites to the left arm from her pet cat. The cat is vaccinated. Unknown last tetanus. She states that the cat may have gotten its tail caught in the door. Nothing makes it better or worse. 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 - Present Medications Home Medications: Ambulatory Orders Medication Instructions Recorded Confirmed Buspirone HCl 30 mg PO DAILY #30 tablet 08/14/17 busPIRone [Buspar] 30 mg DAILY 08/14/17 08/14/17 Spironolactone 25 mg PO DAILY #30 tablet 08/21/17 Venlafaxine [Effexor] 75 mg PO DAILY #60 tablet 08/21/17 amLODIPine [Norvasc] 5 mg PO DAILY #30 tablet 08/21/17 Naproxen 375 mg PO BID #20 tablet 05/14/18 Oxycodone HCl 5 mg PO Q6H PRN #15 tablet 05/14/18 Amox/Clav 875/125 [Augmentin] 1 each PO Q12H #20 tablet 06/08/18 - Allergies Allergies/Adverse Reactions: Allergies Allergy/AdvReac Type Severity Reaction Status Date / Time acetaminophen [From Tylenol] AdvReac Severe HEP C Verified 06/08/18 15:18 STATUS/UNABLE TO PROCESS TYLENOL - Social History Does the pt smoke?: No Smoking Status: Never smoker Does the pt drink ETOH?: No Does the pt have substance abuse?: Yes - Immunizations Immunizations are current?: Yes Immunizations: TDAP >10years/unknown - POLST Patient has POLST: No PD ED PE NORMAL - Vitals Vital signs reviewed: Yes - General General: Alert and oriented X 3, No acute distress - HEENT HEENT: Moist mucous membranes - Derm Derm: Warm and dry - Extremities Extremities: Other (Multiple scratches and bites up and down the left upper extremity. No bleeding. No lacerations that require repair.) - Neuro Neuro: Alert and oriented X 3 Results - Vitals Vitals: Vital Signs - 24 hr 06/08/18 15:14 Temperature 36.8 C Heart Rate 91 Respiratory 16 Rate Blood Pressure 151/95 H O2 Saturation 98 Oxygen O2 Source Room air PD MEDICAL DECISION MAKING - ED course Complexity details: considered differential, d/w patient ED course: Wounds were cleansed. Tetanus given. Will place on Augmentin. Warnings of infection and instructions on wound care given at bedside. Also counseled on how to minimize scarring. Patient counseled regarding signs and symptoms for which I believe and urgent re-evaluation would be necessary. Patient with good understanding of and agreement to plan and is comfortable going home at this time This document was made in part using voice recognition software. While efforts are made to proofread this document, sound alike and grammatical errors may occur. Departure - Departure Disposition: 01 Home, Self Care Clinical Impression: Cat bite Qualifiers: Encounter type: initial encounter Qualified Code(s): W55.01XA - Bitten by cat, initial encounter Condition: Good Instructions: ED Bite Animal General Follow-Up: Nyla Patel ARNP [Primary Care Provider] - Prescriptions: Amox/Clav 875/125 [Augmentin] 1 each PO Q12H #20 tablet Comments: Take all antibiotics until gone. Return if you worsen. You were given a tetanus shot today. Return if you notice redness swelling or drainage from the wounds. Your prescriptions were sent to [facility]
== END 2018-06-08 15:52 | disposition home or self-care (01) ==
LOC: ED 15:06
DX: T14.8XXA Other injury of unspecified body region, initial encounter (principal); W55.01XA Bitten by cat, initial encounter; W55.03XA Scratched by cat, initial encounter; I10 Essential (primary) hypertension
CPT/HCPCS: 90471; 99282; 99283

== ENCOUNTER 2019-07-04 18:28 | Outpatient (CLI) | payer MEDICAID | END 2019-07-04 18:29 | disposition home or self-care (01) | LOC: COV 18:28 | PROVIDERS: ATTEND Family Medicine | DX: U07.1 COVID-19 (principal) | CPT/HCPCS: 81599 ==

== ENCOUNTER 2019-11-23 13:23 | Outpatient (CLI) | payer MEDICAID ==
[2019-11-23 14:03] LABS: BASOPHILS # (AUTO) 0.1 10^3/uL (0.0-0.1); BASOPHILS % (AUTO) 0.8 %; EOSINOPHILS # (AUTO) 0.2 10^3/uL (0.0-0.7); EOSINOPHILS % (AUTO) 2.6 %; HGB - HEMOGLOBIN 15.2 g/dL (12.0-16.0); LYMPHOCYTES # (AUTO) 1.9 10^3/uL (1.5-3.5); LYMPHOCYTES % (AUTO) 29.7 %; MEAN CORPUSCULAR HEMOGLOBIN 29.8 pg (27.0-31.0); MEAN CORPUSCULAR HGB CONC 34.9 g/dL (32.0-36.0); MEAN CORPUSCULAR VOLUME 85.3 fL (81.0-99.0); MONOCYTES # (AUTO) 0.5 10^3/uL (0.0-1.0); MONOCYTES % (AUTO) 7.1 %; NEUTROPHILS # (AUTO) 3.8 10^3/uL (1.5-6.6); NEUTROPHILS % (AUTO) 59.6 %; PLT - PLATELET COUNT 351 10^3/uL (130-450); RED CELL DISTRIBUTION WIDTH 13.3 % (12.0-15.0); WHITE BLOOD COUNT 6.4 x10^3/uL (4.8-10.8)
[2019-11-23 14:16] LABS: ALBUMIN 3.8 g/dL (3.2-5.5); BILIRUBIN,DIRECT 0.2 mg/dL (0.1-0.5); BILIRUBIN,TOTAL 0.5 mg/dL (0.2-1.0); CALCIUM 8.8 mg/dL (8.5-10.3); CREATININE 0.7 mg/dL (0.4-1.0); TOTAL PROTEIN 7.7 g/dL (6.7-8.2)
[2019-11-23 14:31] LABS: THYROID STIMULATING HORMONE 2.07 uIU/mL (0.34-5.60)
[2019-11-23 14:33] LABS: FREE T4 (FREE THYROXINE) 0.85 ng/dL (0.58-1.64)
[2019-11-25 12:51] LABS: HIV AG/AB 4TH GEN NON-REACTIVE (NON-REACTIVE)
[2019-11-25 14:36] LABS: HEPATITIS B SURFACE ANTIGEN NON-REACTIVE (NON-REACTIVE)
== END 2019-11-23 13:24 | disposition home or self-care (01) ==
LOC: LAB 13:23
PROVIDERS: ATTEND Emergency Medicine
DX: F11.20 Opioid dependence, uncomplicated (principal)
CPT/HCPCS: 36415; 80048; 80076; 81599; 84439; 84443; 85025; 86317; 86592; 86704; 86705; 86708; 86709; 87340; 87389

== ENCOUNTER 2019-12-25 14:53 | Outpatient (CLI) | payer MEDICAID ==
--- NOTE | 2019-12-26 15:20 | Mammography Report ---
BILATERAL DIGITAL SCREENING MAMMOGRAM 3D/2D: 12/25/2019 CLINICAL: Routine screening. Comparison is made to exams dated: 04/30/2014 mammogram, 01/22/2013 mammogram, and 12/31/2012 mammogr am [facility]. There are scattered fibroglandular elements in both breasts. No significant masses, calcifications, or other findings are seen in either breast. There has been no significant interval change. IMPRESSION: NEGATIVE There is no mammographic evidence of malignancy. A 1 year screening mammogram is recommended. This exam was interpreted at Station ID: [id number]. NOTE: For mammograms, a report in lay terms will be sent to the patient. Approximately 15% of breast malignancies will not be visualized mammographically. In the management of a palpable breast mass, a negative mammogram must not discourage biopsy of a clinically suspicious lesion. Electronically Signed By: John Paul Maharaj M.D. ddp/penrad:12/25/2019 16:13:01 ACR BI-RADS Category 1: Negative 3341F PARENCHYMAL PATTERN: (A) - The breast(s) demonstrate(s) scattered fibroglandular densities. BI-RADS CATEGORY: (1) - 1 RECOMMENDATION: (ANNUAL) - Recommend routine annual screening mammography. [id number] 1 year screening LATERALITY: (B)
== END 2019-12-25 14:54 | disposition home or self-care (01) ==
LOC: DI.N 14:53
DX: Z12.31 Encounter for screening mammogram for malignant neoplasm of breast (principal)
CPT/HCPCS: 77063; 77067

== ENCOUNTER 2020-02-04 14:15 | Outpatient (CLI) | payer MEDICAID | END 2020-02-04 14:16 | disposition home or self-care (01) | LOC: COV 14:15 | PROVIDERS: ATTEND Family Medicine | DX: R05 Cough (principal); R06.02 Shortness of breath; M79.10 Myalgia, unspecified site; R53.83 Other fatigue; J02.9 Acute pharyngitis, unspecified; R43.8 Other disturbances of smell and taste; Z20.828 Contact with and (suspected) exposure to other viral communicable diseases ==

== ENCOUNTER 2020-08-27 10:14 | Emergency (ER) | payer MEDICAID ==
--- NOTE | 2020-08-27 10:26 | ED Physician Documentation ---
PD HPI UPPER EXT INJURY - Stated complaint Stated Complaint: RT HAND LAC - Chief complaint Chief Complaint: Laceration - History obtained from History obtained from: Patient - History of Present Illness Location: Right, Finger (thumb dorsal MCP joint area) Type of injury: Laceration (cut thumb on edge of broken glass. 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) Timing - details: Abrupt onset, Still present Worsened by: Moving, Palpating Associated symptoms: No: Weakness, Numbness Contributing factors: No: Anticoagulated Similar symptoms before: Has not had sx before Recently seen: Not recently seen Review of Systems Skin: reports: Laceration (s) Neurologic: denies: Focal weakness, Numbness PD PAST MEDICAL HISTORY - Past Medical History Cardiovascular: Hypertension Endocrine/Autoimmune: None Psych: Depression, Anxiety, Panic attacks, ADD/ADHD, Post traumatic stress disorder Musculoskeletal: Osteoarthritis, Chronic back pain - Past Surgical History 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 - Present Medications Home Medications: Ambulatory Orders Medication Instructions Recorded Confirmed Buspirone HCl 30 mg PO DAILY #30 tablet 08/14/17 busPIRone [Buspar] 30 mg DAILY 08/14/17 08/14/17 Spironolactone 25 mg PO DAILY #30 tablet 08/21/17 Venlafaxine [Effexor] 75 mg PO DAILY #60 tablet 08/21/17 amLODIPine [Norvasc] 5 mg PO DAILY #30 tablet 08/21/17 Naproxen 375 mg PO BID #20 tablet 05/14/18 Oxycodone HCl 5 mg PO Q6H PRN #15 tablet 05/14/18 Amox/Clav 875/125 [Augmentin] 1 each PO Q12H #20 tablet 06/08/18 - Allergies Allergies/Adverse Reactions: Allergies Allergy/AdvReac Type Severity Reaction Status Date / Time acetaminophen [From Tylenol] AdvReac Severe HEP C Verified 06/08/18 15:18 STATUS/UNABLE TO PROCESS TYLENOL - Social History Does the pt smoke?: No Smoking Status: Never smoker Does the pt drink ETOH?: No Does the pt have substance abuse?: Yes - Immunizations Immunizations are current?: Yes Immunizations: TDAP >10years/unknown - POLST Patient has POLST: No PD ED PE NORMAL - Vitals Vital signs reviewed: Yes - General General: Alert and oriented X 3, Well developed/nourished, Other (anxious and appears in distress with examining the wound.) - Derm Derm: Normal color, Warm and dry - Extremities Extremities: Other (right thumb with flap lac dorsal MCP which goes down to fatty tissue. No involvement of joint nor ext tendon. Still some bleeding. no FB seen. ) - Neuro Neuro: No motor deficit, No sensory deficit Results - Vitals Vitals: Vital Signs - 24 hr 08/27/20 08/27/20 10:16 11:54 Temperature 36.4 C L 36.2 C L Heart Rate 79 63 Respiratory 16 18 Rate Blood Pressure 155/94 H 155/96 H O2 Saturation 100 100 Oxygen O2 Source Room air Procedures - Laceration (location) right thumb MCP dorsal Length in cm: 1.5 Wound type: Flap, Into subcut fat, Clean. No: Contaminated Neurovascular status: Sensory intact, Motor intact, Vascular intact Tendon involvement: Tendon intact Anesthesia: Lidocaine 1% with epi Wound preparation: Wound explored, To the base. No: FB identified Skin layer closure: Nylon, Running, Size #-0 - enter number (4), Sutures - enter # (10) Other: Patient tolerated well, No complications, Neurovascular intact, Tetanus UTD PD MEDICAL DECISION MAKING - ED course Complexity details: considered differential (still some bleeding and is on knuckle, so sutured. ), d/w patient Departure - Departure Disposition: 01 Home, Self Care Clinical Impression: Thumb laceration Qualifiers: Encounter type: initial encounter Damage to nail status: without damage Foreign body presence: without foreign body Laterality: right Qualified Code(s): S61.011A - Laceration without foreign body of right thumb without damage to nail, initial encounter Condition: Stable Instructions: ED Laceration Hand Comments: It is okay to wash and shower. Clean off the wound twice a day with soap and water, or peroxide and water. Apply some antibiotic ointment to it to keep it moist. Also to watch for signs of infection such as purulence, redness or increasing pain. Return to your primary care or the ER at the specified time for suture removal. Suture removal 8 to 10 days. Tylenol or ibuprofen if needed for pains. Light activity with the thumb for the first couple of days and progress to normal. Discharge Date/Time: 08/27/20 12:05
[2020-08-27] MEDS ORDERED: LIDOCAINE 1%-EPI 1:100000 20 ML MDV SUBQ STA (10:41)
[2020-08-27] MEDS ORDERED: TETANUS/DIPHTHERIA/PERTUSSIS 0.5 ML SYRINGE IM ONE (11:43)
[2020-08-27] MEDS ORDERED: IBUPROFEN 600 MG TABLET PO STA (11:44)
[2020-08-27 11:55] VITALS: BP 155/96
== END 2020-08-27 12:05 | disposition home or self-care (01) ==
LOC: ED 10:14
DX: S61.011A Laceration without foreign body of right thumb without damage to nail, initial encounter (principal); W25.XXXA Contact with sharp glass, initial encounter; Y92.009 Unspecified place in unspecified non-institutional (private) residence as the place of occurrence of the external cause; Z23 Encounter for immunization; I10 Essential (primary) hypertension
CPT/HCPCS: 12001; 90471; 90715; 99282; 99283; A9270

== ENCOUNTER 2020-09-06 23:34 | Emergency (ER) | payer MEDICAID ==
--- NOTE | 2020-09-07 01:55 | ED Physician Documentation ---
PD HPI SKIN - Stated complaint Stated Complaint: RED/WARM AROUND STITCHES - Chief complaint Chief Complaint: Laceration - History obtained from History obtained from: Patient - Additional information Additional information: Patient comes emergency department chief complaint of need suture removal. Patient states she had her right thumb wound repaired 10 days ago and was told to come back in about 10 days for suture removal. She states she has noticed some redness but thinks it is just the new skin growing in. She has not noticed any erythema beyond the area where the old skin is sloughing. No edema. She has had some occasional drainage around the sutures but very minimal. No streaking, fever, or chills. No other complaints at this time. Review of Systems Ten Systems: 10 systems reviewed and negative Constitutional: reports: Reviewed and negative Eyes: reports: Reviewed and negative Ears: reports: Reviewed and negative Nose: reports: Reviewed and negative Throat: reports: Reviewed and negative Cardiac: reports: Reviewed and negative Respiratory: reports: Reviewed and negative GI: reports: Reviewed and negative : reports: Reviewed and negative Skin: reports: Laceration (s) (Healed, with Sutures.) Musculoskeletal: reports: Reviewed and negative Neurologic: reports: Reviewed and negative Psychiatric: reports: Reviewed and negative Endocrine: reports: Reviewed and negative Immunocompromised: reports: Reviewed and negative PD PAST MEDICAL HISTORY - Past Medical History Past Medical History: Yes Cardiovascular: Hypertension Endocrine/Autoimmune: None Psych: Depression, Anxiety, Panic attacks, ADD/ADHD, Post traumatic stress disorder Musculoskeletal: Osteoarthritis, Chronic back pain - Past Surgical History Past Surgical History: Yes /E[employer]ICIAN: Tubal ligation - Present Medications Home Medications: Ambulatory Orders Medication Instructions Recorded Confirmed Buspirone HCl 30 mg PO DAILY #30 tablet 08/14/17 busPIRone [Buspar] 30 mg DAILY 08/14/17 08/14/17 Spironolactone 25 mg PO DAILY #30 tablet 08/21/17 Venlafaxine [Effexor] 75 mg PO DAILY #60 tablet 08/21/17 amLODIPine [Norvasc] 5 mg PO DAILY #30 tablet 08/21/17 Naproxen 375 mg PO BID #20 tablet 05/14/18 Oxycodone HCl 5 mg PO Q6H PRN #15 tablet 05/14/18 Amox/Clav 875/125 [Augmentin] 1 each PO Q12H #20 tablet 06/08/18 - Allergies Allergies/Adverse Reactions: Allergies Allergy/AdvReac Type Severity Reaction Status Date / Time acetaminophen [From Tylenol] AdvReac Severe HEP C Verified 09/06/20 23:52 STATUS/UNABLE TO PROCESS TYLENOL - Social History Does the pt smoke?: No Smoking Status: Never smoker Does the pt drink ETOH?: No Does the pt have substance abuse?: Yes - Immunizations Immunizations are current?: Yes Immunizations: TDAP >10years/unknown - POLST Patient has POLST: No PD ED PE NORMAL - Vitals Vital signs reviewed: Yes - General General: Alert and oriented X 3, No acute distress - HEENT HEENT: Atraumatic, PERRL, EOMI, Moist mucous membranes - Neck Neck: Supple, no meningeal sign - Cardiac Cardiac: Strong equal pulses - Respiratory Respiratory: No respiratory distress - Derm Derm: Normal color, Warm and dry, No rash, Other (Well-healed laceration at the base of right thumb with [address] No fluctuance, induration, or drainage. No erythema.) - Extremities Extremities: No deformity, Other (Full range of motion right MCP joint.) - Neuro Neuro: Alert and oriented X 3 - Psych Psych: Normal mood, Normal affect Results - Vitals Vitals: Vital Signs - 24 hr 09/06/20 09/07/20 23:52 02:04 Temperature 36.5 C 36.7 C Heart Rate 73 76 Respiratory 16 18 Rate Blood Pressure 160/90 H 170/89 H O2 Saturation 99 100 Oxygen O2 Source Room air Procedures - Suture/staple Removal (location) R thumb base Suture/staple removal: # sutures (5), No complications. No: Infected, Dehiscence, Retained FB PD MEDICAL DECISION MAKING - ED course Complexity details: considered differential, d/w patient ED course: All sutures removed as above. We have discussed the usual indications for return. Departure - Departure Disposition: 01 Home, Self Care Condition: Stable Instructions: ED Wound Check Sutr Remove No Infec Discharge Date/Time: 09/07/20 02:07
[2020-09-07 02:05] VITALS: BP 170/89
== END 2020-09-07 02:07 | disposition home or self-care (01) ==
LOC: ED 23:34
DX: S61.011D Laceration without foreign body of right thumb without damage to nail, subsequent encounter (principal); X58.XXXD Exposure to other specified factors, subsequent encounter